=== PATIENT | female | born 1965 ===

== ENCOUNTER 2018-11-02 21:49 | Emergency (ER) | payer MEDICAID ==
[~2018-11-02] VITALS: Ht 162.6 cm; Wt 119.0 kg
--- NOTE | 2018-11-02 22:06 | NUR ---
assessment made. PA at bedside.
[2018-11-02] MEDS ORDERED: ACETAMINOPHEN 325 MG TABLET ONE (22:14)
[2018-11-02] MEDS ORDERED: ONDANSETRON 2MG/ML, 2ML ONE (22:14)
[2018-11-02] MEDS ORDERED: MORPHINE SULFATE 4 MG/ML, 1ML ONE (22:14)
[2018-11-02] MEDS: MORPHINE SULFATE 4 MG/ML, 1ML IVPush PRN (22:20)
--- NOTE | 2018-11-02 22:20 | NUR ---
patient medicated for pain and nausea. IVF hung.
[2018-11-02] MEDS ORDERED: ONDANSETRON 2MG/ML, 2ML IVPush ONE (22:30)
[2018-11-02] MEDS ORDERED: SODIUM CHLORIDE 0.9% 1,000ML IVBOLUS ONE (22:30)
[2018-11-02] MEDS ORDERED: ACETAMINOPHEN 325 MG TABLET PO ONE (22:30)
[2018-11-02] MEDS ORDERED: SODIUM CHLORIDE FLUSH 10ML SYR IVF ONE (22:30)
[2018-11-02 22:32] LABS: CULTURE INDICATED? YES; MICROSCOPIC AUTO
--- NOTE | 2018-11-02 22:37 | NUR ---
photonic laboratory technician at bedside for blood draw.
--- NOTE | 2018-11-02 22:48 | NUR ---
CT PENDING LAB/CREATINE.
[2018-11-02 22:53] LABS: BASOPHILS # (AUTO) 0.05 x10^3/uL (0-0.1); BASOPHILS % (AUTO) 0 % (0-1); EOSINOPHILS # (AUTO) 0.07 x10^3/uL (0-0.4); EOSINOPHILS % (AUTO) 0 % (1-7); LYMPHOCYTES # (AUTO) 2.34 x10^3/uL (1-3.4); LYMPHOCYTES % (AUTO) 14 % (22-44); MD NO; MEAN CORPUSCULAR HEMOGLOBIN 29.6 pg (27.0-34.8); MEAN CORPUSCULAR HGB CONC 33.6 g/dL (32.4-35.8); MEAN CORPUSCULAR VOLUME 88.3 fL (80-100); MEAN PLATELET VOLUME 9.6 fL (7.4-10.4); MONOCYTES # (AUTO) 0.72 x10^3/uL (0.2-0.8); MONOCYTES % (AUTO) 4 % (2-9); NEUTROPHILS # (AUTO) 13.37 x10^3/uL (1.8-6.8); NEUTROPHILS % (AUTO) 81 % (42-75); PLATELET COUNT 245 x10^3/uL (130-400); RED BLOOD COUNT 5.06 x10^6/uL (3.82-5.3); RED CELL DISTRIBUTION WIDTH 14.1 % (9.6-15.2)
[2018-11-02 23:05] LABS: ALANINE AMINOTRANSFERASE 33 U/L (12-78); ANION GAP 4 mmol/L (5-15); CALCIUM 8.2 mg/dL (8.5-10.1); CHLORIDE 106 mmol/L (98-107); CREATININE 0.92 mg/dL (0.55-1.02)
[2018-11-02 23:07] LABS: ALKALINE PHOSPHATASE 126 U/L (45-117); BILIRUBIN,TOTAL 0.6 mg/dL (0.2-1.0); TOTAL PROTEIN 7.9 g/dL (6.4-8.2)
--- NOTE | 2018-11-02 23:20 | NUR ---
patient to CT scan.
--- NOTE | 2018-11-02 23:31 | NUR ---
back from CT scan. awaiting result.
[2018-11-02] MEDS ORDERED: OMNIPAQUE 350 MG/ML, 100ML BOTTLE ONE (23:48)
[2018-11-03] MEDS ORDERED: MORPHINE SULFATE 4 MG/ML, 1ML ONE (00:03)
--- NOTE | 2018-11-03 00:08 | NUR ---
patient states pain is coming back. re-medicated.
[2018-11-03] MEDS: MORPHINE SULFATE 4 MG/ML, 1ML IVPush PRN (00:14)
[2018-11-03] MEDS ORDERED: CEFTRIAXONE PMX 1GM/50ML 50 ML IV ONE (00:30)
[2018-11-03] MEDS ORDERED: CEFTRIAXONE PMX 1GM/50ML 50 ML ONE (00:30)
[2018-11-03] MEDS ORDERED: SODIUM CHLORIDE 0.9% 1,000ML IVBOLUS ONE (00:30)
--- NOTE | 2018-11-03 01:01 | NUR ---
ultrasound at bedside. 2nd liter NS and antibiotic hung.
--- NOTE | 2018-11-03 01:42 | NUR ---
all labs and radiology resulted. chart up for MD to re-eval.
[2018-11-03 01:54] VITALS: BP 106/63
--- NOTE | 2018-11-03 01:55 | NUR ---
ERP at bedside for re-evaluation. patient to bathroom with steady gait.
--- NOTE | 2018-11-03 02:20 | NUR ---
patient discharged with prescriptions and instruction. verbalized understanding.
== END 2018-11-03 02:28 | disposition home or self-care (01) ==
LOC: ED 23:00
DX: K80.20 Calculus of gallbladder without cholecystitis without obstruction (principal); N39.0 Urinary tract infection, site not specified; N10 Acute pyelonephritis
CPT/HCPCS: 36415; 74177; 76700; 80053; 81001; 83605; 83690; 84145; 85025; 87040; 87077; 87086; 87147; 87186; 93005; 96361; 96365; 96375; 96376; 99284; J0696; J2270; J2405; J7030; Q9967